=== PATIENT | female | born 1960 | race Caucasian/White ===

== ENCOUNTER → 2023-03-11 | Outpatient (CLI) | payer BC | END | disposition home or self-care (01) | LOC: LABPAT 11:10 | PROVIDERS: ATTEND Orthopaedic Surgery | DX: Z01.812 Encounter for preprocedural laboratory examination (principal); M16.11 Unilateral primary osteoarthritis, right hip ==

== ENCOUNTER 2023-03-18 08:12 | Observation (INO) | payer BC ==
[2023-03-09 08:36] VITALS: BMI 37.9
[2023-03-11 12:34] LABS: Partial Thromboplastin Time 23.7 sec (22.0-30.0); Prothrombin Time 10.1 sec (9.0-12.0)
[2023-03-14 16:24] LABS: Appearance,Urine Turbid (Clear); Bilirubin,Urine Negative (Negative); Blood,Urine Trace (Negative); Color,Urine Dark Yellow (Yellow); Ketones,Urine Negative (Negative); Nitrite,Urine Negative (Negative); Specific Gravity,Urine 1.021 (1.001-1.030); Urobilinogen,Urine 0.2
[2023-03-14 16:25] LABS: ALT 75 U/L (8-44); AST 71 U/L (13-35); Albumin 4.4 d/dL (3.8-4.9); Albumin/Globulin Ratio 1.63 Ratio (1.60-3.17); Alkaline Phosphatase 133 U/L (41-126); BUN/Creat Ratio 13.43 Ratio (12.00-20.00); Bacteria,Urine Trace; Blood Urea Nitrogen 9.4 mg/dL (9.0-27.0); Calcium 9.4 mg/dL (8.7-10.3); Carbon Dioxide 26.4 mmol/L (21.6-31.8); Chloride 104 mmol/L (96-109); Globulin 2.7 d/dL (1.6-3.3); Glucose 111 mg/dL (70-110); HCT 50.4 % (37.2-46.3); HGB 16.4 d/dL (12.0-15.0); MCH 32.2 pg (27.0-32.0); MCHC 32.5 d/dL (32.0-37.0); Mean Platelet Volume 10.7 FL (9.5-12.2); NRBC Per 100 WBC 0 X 10*3/uL (0.00-0.01); Platelet Count 223 X 10*3/uL (140-440); Potassium 4.6 mmol/L (3.5-5.5); RBC 5.09 X 10*6/uL (4.10-5.20); RDW 12.3 % (11.5-14.5); Sodium 142 mmol/L (135-145); Total Bilirubin 0.4 mg/dL (0.3-1.2); Total Protein 7.1 d/dL (6.2-8.2); WBC 4.74 X 10*3/uL (4.50-10.00)
[~2023-03-18 08:12] MED LIST: ACETAMINOPHEN TAB 500 MG TAB PO PRN; DEXAMETHASONE SOD PHOSPHATE 10 MG/ML 1 ML VIAL IV PRN; DOCUSATE 100 MG CAP PO PRN; FAMOTIDINE 20 MG/2 ML VIAL IVP PRN; KETOROLAC 15 MG/ML 1 ML VIAL IVP PRN; ONDANSETRON 4 MG/2 ML VIAL IVP PRN; TRANEXAMIC 1,000 MG/100ML-NACL 1,000 MG in SALINE 1 100ML.BAG IV PRN; TRANEXAMIC 1,000 MG/100ML-NACL 1,000 MG in SALINE 1 100ML.BAG IVPB PRN; oxyCODONE ER 10 MG TAB.ER.12H PO PRN
[2023-03-18] MEDS: LACTATED RINGERS 1,000 ML IV SCH ×2 (09:00→21:57)
[2023-03-18] MEDS ORDERED: DEXAMETHASONE SOD PHOSPHATE 4 MG/ML 1 ML VIAL IVP ONE (09:32)
[2023-03-18] MEDS ORDERED: MIDAZOLAM 2 MG/2 ML VIAL IVP ONE (09:34)
[2023-03-18] MEDS ORDERED: fentaNYL (PF) 50 MCG/ML 2 ML AMP IVP ONE (09:40)
[2023-03-18 09:42] LABS: Glucose,Whole Blood 124 mg/dL (70-110)
[2023-03-18] MEDS ORDERED: NEOSTIGMINE 1 MG/ML 10 ML VIAL ONE (09:53)
[2023-03-18] MEDS ORDERED: SODIUM CHLORIDE 0.9% (PF) 10 ML VIAL ONE (09:53)
[2023-03-18] MEDS ORDERED: ROPIVACAINE 5 MG/ML 30 ML VIAL ONE (09:53)
[2023-03-18] MEDS ORDERED: LIDOCAINE 2% INJ 20 MG/ML (2 ML VIAL) ONE (09:53)
[2023-03-18] MEDS ORDERED: fentaNYL (PF) 50 MCG/ML 2 ML AMP ONE (09:53)
[2023-03-18] MEDS ORDERED: TRANEXAMIC 1,000 MG/100ML-NACL PREMIX BAG ONE (09:53)
[2023-03-18] MEDS ORDERED: GLYCOPYRROLATE 0.2 MG/ML 2 ML VIAL ONE (09:53)
[2023-03-18] MEDS ORDERED: PHENYLEPHRINE-0.9% NACL SYG 1,000 MCG/10 ML SYRINGE ONE (09:53)
[2023-03-18] MEDS ORDERED: MIDAZOLAM 2 MG/2 ML VIAL ONE (09:53)
[2023-03-18] MEDS ORDERED: SUCCINYLCHOLINE CHLORIDE 200 MG/10 ML VIAL IV ONE (09:53)
[2023-03-18] MEDS ORDERED: PROPOFOL 10 MG/ML 20 ML VIAL IV ONE (09:53)
[2023-03-18] MEDS ORDERED: HYDROmorphone (PF) 1 MG/ML ONE (09:53)
[2023-03-18] MEDS ORDERED: ROCURONIUM 10 MG/ML (5 ML VIAL) IV ONE (09:53)
[2023-03-18] MEDS: ROPIVACAINE/EPI/CLONIDINE/KET 50 ML SYRINGE MISCELLANE PRN ×2 (10:47→11:55)
[2023-03-18] MEDS ORDERED: LACTATED RINGERS 1,000 ML IV ONE (11:40)
--- NOTE | 2023-03-18 12:18 | FL ---
EXAMINATION TYPE: FL guidance operating room DATE OF EXAM: 03/18/2023 HISTORY: Fluoroscopy time Total dose area product (DAP) in uGy*m?, mGy*cm? (or similar): 6.1638 IMPRESSION: 1. Fluoroscopy time.
--- NOTE | 2023-03-18 12:20 | XR ---
EXAMINATION TYPE: XR Hip Limited RT DATE OF EXAM: 03/18/2023 COMPARISON: NONE HISTORY: Postop TECHNIQUE: One view submitted. FINDINGS: There is postsurgical change in near anatomic alignment. There is soft tissue edema and emphysema. IMPRESSION: 1. Postoperative change. Appears in near-anatomic alignment.
--- NOTE | 2023-03-18 12:36 | P.ANPRN ---
Procedure Note - Anesthesia - Nerve Block Performed Right Tray Time Out Performed: Yes (:) Date of Procedure: 03/18/23 Procedure Start Time: Procedure Stop Time: : Location of Patient: PreOp Indication: Acute Post-Operative Pain, Requested by Surgeon (Dr Mcgee) Sedation Type: Sedate with meaningful contact maintained Preparation: Sterile Prep Position: Supine Catheter: None Needle Types: Pajunk Needle Gauge: 21 Ultrasound used to visualize needle placement: Yes Ultrasound used to observe medication spread: Yes Injectate: 0.5% Ropivacaine (see comment for volume) (20cc +5cc PF Normal saline) Blood Aspirated: No Pain Paresthesia on Injection Noted: No Resistance on Injection: Normal Image Stored and Saved: Yes Events: Uneventful and Well Tolerated
[2023-03-18] MEDS ORDERED: HYDROmorphone 0.5 MG/0.5 ML SYRINGE IVP PRN ×2 (12:39)
[2023-03-18] MEDS ORDERED: NALOXONE 0.4 MG/ML 1 ML VIAL IV PRN (12:39)
[2023-03-18] MEDS ORDERED: HYDROmorphone 1 MG/ML 1 ML SYRINGE IVP PRN (12:39)
[2023-03-18] MEDS ORDERED: hydrOXYzine pamoate 25 MG CAP PO PRN (12:39)
--- NOTE | 2023-03-18 12:40 | P.OP ---
Date of Procedure: 03/18/23 Preoperative Diagnosis: 1. Right hip osteoarthritis 2. BMI 37.7 3. Chronic narcotic pain medication use, [place] 7.5/325 Postoperative Diagnosis: Same Procedure(s) Performed: Right direct anterior total hip arthroplasty Implants: 1. Hendley Trident II Acetabular Cup, Size #48 2. Lupe Insignia Size #4 Femoral Stem, Standard Offset 3. Dual Mobility OD 38 mm, ID 22.2 mm, +3 mm neck (Dual mobility was used to the patient's prior lumbar spine fusion and concern for abnormal spino-pelvic motion) Anesthesia: HARSHIL, regional Surgeon: Joseph Mcgee Linen Attendant #1: Sukhwinder Drew Estimated Blood Loss (ml): 200 IV fluids (ml): 1,000 Pathology: none sent Condition: stable Disposition: PACU Indications for Procedure: I met the patient in the office to discuss chronic right hip pain that had fail ed a long course of nonsurgical treatment and presented to discuss an elective hip replacement.. The patient had severe arthritis on her x-rays and had an exam that was consistent with symptomatically Arthritis that she had limited hip motion and severe pain with any passive range of motion. The patient also has a history of lumbar spine fusion and chronically takes narcotic pain medications. She understands the possibility of referred pain from her back. She also understands increased risks due to her weight and narcotic use. I had a long discussion with the patient in the office on the potential risks and complications of an elective total hip replacement through a direct anterior approach. Risks discussed include, but are certainly not limited to, risks from anesthesia, superficial infection requiring local wound care or antibiotics, deep josephine-prosthetic joint infection and the treatment required to eradicate infection, intraoperative fracture, postoperative periprosthetic fracture, damage to local blood vessels or nerves particularly the lateral femoral cutaneous nerve, delayed wound healing requiring local wound care or possibly surgical debridement, hip dislocation, leg length discrepancy, soft tissue irritation around the total hip implant such as iliopsoas tendinitis or trochanteric bursitis, wear and osteolysis from the implants, squeaking or audible noises, groin pain, thigh pain, heterotopic ossification, stiffness, aseptic loosening of the implants, dissatisfaction with surgical outcome, need for revision surgery, DVT, PE, swelling of the operative extremity, acute coronary event, stroke, failure to thrive, and possibly loss of life or limb. The patient understands that while these are the most common complications after an elective hip replacement there are certainly other less common complications possible. They were given ample time to ask questions regarding the potential complications of a hip replacement. Following our discussion the patient provided their verbal and written consent to go forward with an elective total hip replacement. Operative Findings: Severe full-thickness cartilage loss of the femoral head and acetabulum. Description of Procedure: The patient was identified in the preoperative holding area and the correct hip was marked with my initials. I reviewed the procedure and consent with the patient. All of their questions were answered. The patient was then brought back into the operating room by anesthesia. While on the [facility] anesthesia was administered by the anesthesia team. Preoperative antibiotics and tranexamic acid were also given. After the patient was under anesthesia I examined their ankles to determine their preoperative leg length discrepancy. The skin over the anterior aspect of the hip was shaved to remove hair over the site of planned incision. Both feet and ankles were padded with webril and boots for the [place] were applied. The patient was then carefully transferred onto the [place] table. A perineal post was immediately placed. The arms were placed on arm holders and were well-padded. Both boots were secured to the spars on the [place] table. The patient was positioned so that the pelvis was centered over the post. Nonsterile drapes were applied. A timeout was performed identifying the correct patient, operative extremity, and procedure. At this point fluoroscopy was brought in to take preoperative images of the pelvis and operative hip. Using the standing AP pelvis from the office as a template, a comparable image was obtained with fluoroscopy. A metallic bar was used to create a bi-ischial line for use as a reference to leg length adjustments during the procedure. Global offset was also measured on both the operative and nonoperative leg. Fluoroscopy was then brought out and a pre-scrub using a chlorhexidine scrub brush was performed. The operative limb was then prepped and draped in the standard sterile fashion. An anterior longitudinal incision was made lateral and distal to the ASIS. The skin and subcutaneous tissues were incised sharply. The underlying tensor fascia was identified and incised in its midportion. The fascia was dissected free from the underlying muscle and the muscle belly was retracted. A blunt tipped cobra retractor was placed over the superior neck under the muscle fibers of the gluteus minimus. The deep enveloping fascia of the tensor was incised. The anterior leash of vessels were then identified and cauterized. The fascia between the rectus and the capsule was then incised and the pre-capsular fat was excised. A second Cobra was placed inferior to the neck. The interval between the rectus and iliocapsularis and the hip capsule was developed and a retractor was placed carefully over the anterior rim of the acetabulum. A T-shaped anterior capsulotomy was performed. The superior capsular leaflet was left in place in the inferior capsular flap was excised. The Cobra retractors were placed intracapsularly. We then made a femoral neck osteotomy according to preoperative and intraoperative templating and confirmed the level of the osteotomy using fluoroscopic imaging. The femoral head was removed, passed off to the back table, and sized. The superior capsular flap was excised. Retractors were placed circumferentially exposing the acetabulum. We then circumferentially debrided the acetabulum free of labrum and osteophytes. The pulvinar was removed to fully visualize the cotyloid fossa. We then sequentially reamed to achieve peripheral fit and excellent bleeding subchondral bone. The socket was thoroughly irrigated. The acetabular component was impacted into the appropriate position using fluoroscopy to guide version, inclination, and depth of insertion taking care to have a comparable image of the AP pelvis to the standing image taken in the office. An excellent press-fit was achieved and final position was confirmed using fluoroscopy. The press fit was augmented with bony cancellus dome screws. The liner was then impacted into the socket. Attention was then turned to the femur. The remnant dorsal lateral capsule was excised. The short external rotators were visible and protected. A bone hook was used to confirm appropriate translation of the trochanter away from the acetabulum. The leg was then extended and adducted and the bone hook was used to elevate the femur for broaching. A box osteotome and blunt tipped canal sound was then utilized to gain access to the femoral canal. We then sequentially broached the femur in appropriate anteversion until excellent torsional stability was achieved. The neck cut was brought flush to the trial broach with a calcar planar. A trial neck and head were then placed onto the broach and the hip was atraumatically reduced under direct visualization. External rotation to 90 was performed to assess stability. Fluoroscopy was brought in. An AP and lateral fluoroscopic image of the proximal femur was obtained to assess position and fill of the trial broach. An AP of the pelvis was then obtained and matched to the preoperative image taken. A bi-ischial bar was then placed and measurements were taken to assess changes in length and offset. The hip was then carefully dislocated, the proximal femur was exposed, and the trial implants were removed. The wound and proximal femur was thoroughly irrigated using sterile saline and pulsatile lavage. The final femoral implant was dispensed and gently tapped into place generating an excellent press-fit. The trunnion was cleansed and the final head was tapped into place to engage the Khoury taper. The acetabulum was irrigated and visualized to be free of debris. The hip was carefully reduced. Stability was checked clinically with external rotation to 90 and there was no evidence of instability. Final fluoroscopic images were taken. The wound was then thoroughly irrigated and soaked with a dilute Betadine rinse for 3 minutes. 3 L of sterile saline was irrigated through the wound using pulsatile lavage. Local anesthetic cocktail was injected into the soft tissues around the surgical field. A deep drain was placed. The wound was then closed in layers. A sterile dressing was placed over the surgical incision and drain site. The drapes were taken down and the patient was carefully transferred off of the [place] table. Following removal of the boots the leg lengths felt acceptable. The patient was then taken to recovery room having tolerated the procedure well. Sukhwinder Drew PA-C was required as a skilled prosthetic assistant for patient positioning, surgical exposure, retraction, placement of implants, and closure of the surgical wound. PLAN: The patient can weight-bear as tolerated on the operative extremity. 2 doses of postoperative antibiotics. DVT prophylaxis with aspirin 81 mg twice a day based on preoperative risk stratification. Physical therapy for gait training. Discontinue drain postoperative day #1 if output is less than 100 mL per shift.
[2023-03-18] MEDS ORDERED: HYDROmorphone 0.5 MG/0.5 ML SYRINGE IVP ONE (12:48)
[2023-03-18 18:18] LABS: Glucose,Whole Blood 172 mg/dL (70-110)
--- NOTE | 2023-03-18 19:32 | XR ---
EXAMINATION TYPE: XR ankle limited RT DATE OF EXAM: 03/18/2023 7:10 PM INDICATION: Patient age:Female; 62 years old; Reason for study: fall; COMPARISON: None TECHNIQUE: The right ankle is imaged in frontal, lateral and oblique projections. FINDINGS: There is no evidence of acute osseous pathology. The joint spaces are well-preserved without evidenc e of subluxation or dislocation. Kager's fat pad is intact. Soft tissues are within normal limits. No radiopaque foreign bodies are identified. IMPRESSION: 1. No evidence of acute fracture.
--- NOTE | 2023-03-18 19:33 | XR ---
EXAMINATION TYPE: XR Hip Limited RT DATE OF EXAM: 03/18/2023 7:10 PM INDICATION: Patient age:Female; 62 years old; Reason for study: fall, post R FREDA; COMPARISON: None. TECHNIQUE: The right hip was examined in the frontal projections FINDINGS: Post arthroplasty changes, hardware is intact, alignment is appropriate. No evidence of fra cture. Postoperative changes of the soft tissues with subcutaneous gas. No evidence of any acute osse ous pathology or joint dislocation. IMPRESSION: Hip arthroplasty with hardware intact and in appropriate alignment. No acute fracture.
[2023-03-18] MEDS: ASPIRIN 81 MG PO SCH (20:13)
[2023-03-18] MEDS: SENNOSIDES-DOCUSATE SODIUM 1 EACH TAB PO SCH (20:14)
[2023-03-18] MEDS: HYDROcodone/APAP 10-325MG 1 EACH TAB PO PRN (21:56)
[2023-03-19] MEDS ORDERED: ALBUTEROL NEBULIZED 2.5 MG/3 ML INHALATION PRN (02:36)
--- NOTE | 2023-03-19 04:01 | P.CONS ---
History of Present Illness - Reason for Consult Consult date: 03/18/23 post op medical management - Chief Complaint scheduled right hip replacement - History of Present Illness 62 year old female with hypothyroid , hypertension , GERD she is here for planned right total hip arthroplasty due to severe OA. patient tolerated procedure well, no observed immediate post op complications , denies any chest pain , trouble breathing , fever, chills. patient reports falling post operatively , but then she was evaluated by her surgeon and deemed to be stable , with intact surgical site. denies smoking , illicit drugs or alcohol Review of Systems Pertinent positives as noted in HPI. All other systems were reviewed and are negative Past Medical History Past Medical History: Asthma, GERD/Reflux, Hyperlipidemia, Hypertension, Osteoarthritis (OA), Thyroid Disorder Additional Past Medical History / Comment(s): "little leaky heart valve",hypoglycemic History of Any Multi-Drug Resistant Organisms: None Reported Past Surgical History: Adenoidectomy, Cholecystectomy, Orthopedic Surgery, Tonsillectomy Additional Past Surgical History / Comment(s): ORIF left ankle,exploratory lap and bowel was nicked causing an open laparotomy to repair. anterior TRH. Past Anesthesia/Blood Transfusion Reactions: Postoperative Nausea & Vomiting (PONV) Additional Past Anesthesia/Blood Transfusion Reaction / Comm: blood transfusion post tonsillectomy as a child-no reactions. "I get antsy with anesthesia and confused OT after anesthesia" Past Psychological History: Anxiety, Depression Additional Psychological History / Comment(s): had son pass away at age 4 months. Smoking Status: Former smoker Past Alcohol Use History: Occasional Additional Past Alcohol Use History / Comment(s): quit smoking approx 10 yrs ago, started smoking at age 15 Past Drug Use History: None Reported - Past Family History Mother Family Medical History: Cancer Additional Family Medical History / Comment(s): skin Brother(s) Family Medical History: Diabetes Mellitus Sister(s) Family Medical History: Diabetes Mellitus Father Family Medical History: Coronary Artery Disease (CAD), Diabetes Mellitus Medications and Allergies Home Medications Medication Instructions Recorded Confirmed Type Albuterol Inhaler [Ventolin Hfa 1 - 2 puff INHALATION Q6H PRN 03/09/23 03/18/23 History Inhaler] Aspirin 81 mg PO DAILY 03/09/23 03/18/23 History Cholecalciferol (Vitamin D3) 1,250 mcg PO 1800 03/09/23 03/18/23 History [Vitamin D3] Famotidine [Pepcid] 40 mg PO TID PRN 03/09/23 03/18/23 History HYDROcodone/APAP 7.5-325MG [[place] 1 tab PO TID PRN 03/09/23 03/18/23 History 7.5-325] Ibuprofen [Motrin] 600 mg PO Q8HR PRN 03/09/23 03/18/23 History Levothyroxine Sodium [Synthroid] 25 mcg PO DAILY 03/09/23 03/18/23 History Loperamide [Imodium] 2 mg PO QID PRN 03/09/23 03/18/23 History Losartan [Cozaar] 50 mg PO DAILY 03/09/23 03/18/23 History Magnesium Oxide [Magnesium] 500 mg PO 1800 03/09/23 03/18/23 History Mupirocin [Bactroban Nasal 1 applic TOPICAL TID 03/09/23 03/18/23 History Ointment 2% (with applicator)] clonazePAM [KlonoPIN] 0.5 - 1 mg PO TID PRN 03/09/23 03/18/23 History Allergies Allergy/AdvReac Type Severity Reaction Status Date / Time ampicillin Allergy Unknown Verified 03/09/23 08:08 Childhood cephalexin [From Keflex] Allergy Dyspnea Verified 03/09/23 08:08 erythromycin base Allergy Dyspnea Verified 03/09/23 08:08 moxifloxacin [From Avelox] Allergy Dyspnea Verified 03/09/23 08:08 Sulfa (Sulfonamide Allergy Dyspnea Verified 03/09/23 08:08 Antibiotics) tetracycline Allergy Dyspnea Verified 03/09/23 08:08 clindamycin AdvReac bowel Verified 03/09/23 08:30 problems DIAL SOAP AdvReac Rash/Hives Uncoded 03/18/23 08:56 Physical Exam Vitals: Vital Signs Temp Pulse Resp BP Pulse Ox 03/18/23 18:46 98.7 F 90 139/87 94 L 03/18/23 15:53 63 119/76 92 L 03/18/23 15:38 70 110/69 87 L 03/18/23 15:23 72 133/80 86 L 03/18/23 15:08 92 137/87 92 L 03/18/23 14:53 75 133/83 94 L 03/18/23 14:38 70 130/81 93 L 03/18/23 14:23 64 116/73 91 L 03/18/23 14:08 65 113/76 95 03/18/23 13:53 97.9 F 57 L 121/75 88 L 03/18/23 13:30 77 16 119/63 98 03/18/23 13:15 80 16 118/56 98 03/18/23 13:00 63 20 129/64 98 03/18/23 12:45 59 L 20 135/60 98 03/18/23 12:37 82 20 137/80 97 03/18/23 09:49 78 20 111/61 96 03/18/23 08:53 97.8 F 77 20 158/86 94 L Intake and Output 03/18/23 03/18/23 03/18/23 06:59 14:59 22:59 Intake Total 1550 Output Total 200 800 Balance 1350 -800 Intake: IV 1550 Output: Urine 800 Estimated Blood Loss 200 Other: # Voids 1 Weight 106 kg Constitutional: No acute distress, conversant, pleasant Eyes: Anicteric sclerae, moist conjunctiva, Pupils equal round reactive to light ENMT: NC/AT Oropharynx clear, no erythema, or exudates Neck: Supple, no masses, or JVD No carotid bruits No thyromegaly Lungs: Clear to auscultation Clear to percussion Normal respiratory effort, no accessory muscle use Cardiovascular: Heart regular in rate and rhythm, No murmurs, gallops, or rubs No peripheral edema Abdominal: Soft Nontender, no guarding, rebound or rigidity Abdomen moving with respiration Normoactive bowel sounds No hepatomegaly, No splenomegaly No palpable mass No abdominal wall hernia noted Skin: Normal temperature, tone, texture, turgor Extremities: drain in right hip post op. No digital cyanosis No clubbing Pedal pulses intact and symmetrical Radial pulses intact and symmetrical No calf tenderness Psychiatric: Alert and oriented to person, place and time Appropriate affect Neuro Muscles Strength 5/5 in all 4 extremities , limited exam over right lower extremity due to post op pain Sensation to light touch grossly present throughout Cranial nerves II-XII grossly intact Lymphatics: no palpable cervical or supraclavicular lymph nodes Results CBC & Chem 7: 03/11/23 11:58 03/11/23 11:58 Labs: Abnormal Lab Results - Last 24 Hours (Table) 03/18/23 03/18/23 Range/Units 09:25 18:17 POC Glucose (mg/dL) 124 H 172 H (70-110) mg/dL Assessment and Plan Assessment: hypertension resume losartan 50 mg po daily blood pressure controlled hypothyroid resume levothyroxine 25 mcg daily GERD pepcid daily anxiety resume home klonipin stable from medical stand point post right hip arthroplasty , POD #zero fall post op , was evaluated by orthopedics pain control and DVT PPX per orthopedic team stable from medical stand point follow up CBC and CMP thank you for this consultation
[2023-03-19] MEDS: LEVOTHYROXINE 25 MCG TAB PO SCH (05:54)
[2023-03-19] MEDS: LOSARTAN 50 MG TAB PO SCH (08:33)
[2023-03-19] MEDS: ASPIRIN 81 MG PO SCH ×2 (08:33→22:21)
[2023-03-19] MEDS: ARTIFICIAL TEARS-HYPROMELLOSE DROPS 15 ML BTL RIGHT EYE PRN (08:33)
[2023-03-19] MEDS: HYDROcodone/APAP 10-325MG 1 EACH TAB PO PRN ×2 (08:38→22:21)
[2023-03-19 09:03] LABS: HCT 43.3 % (34.0-46.0); HGB 14.1 gm/dL (11.4-16.0); MCH 33.1 pg (25.0-35.0); MCHC 32.6 g/dL (31.0-37.0); MCV 101.6 fL (80.0-100.0); Macrocytosis Slight; Mean Platelet Volume 8.6; Platelet Count 150 k/uL (150-450); RBC 4.26 m/uL (3.80-5.40); RDW 12.5 % (11.5-15.5); WBC 10.5 k/uL (3.8-10.6)
[2023-03-19 09:18] LABS: African American GFR (CKD) >90 (>60 ml/min/1.73 sqM); Anion Gap 7 mmol/L; Blood Urea Nitrogen 9 mg/dL (7-17); Calcium 8.6 mg/dL (8.4-10.2); Carbon Dioxide 23 mmol/L (22-30); Chloride 105 mmol/L (98-107); Glucose 131 mg/dL (74-99); Non-African American GFR(CKD) >90 (>60 ml/min/1.73 sqM); Sodium 135 mmol/L (137-145)
--- NOTE | 2023-03-19 10:37 | P.PN ---
Subjective Progress Note Date: 03/19/23 The patient reports that she sustained a ground-level fall yesterday while coming back from the bathroom. She was seen and evaluated and had x-rays, but continues to have some discomfort throughout her leg. She denies hitting her head or losing consciousness. She has no other complaints this morning. Objective - Vital Signs Vital signs: Vital Signs Temp 98.2 F 03/19/23 07:57 Pulse 99 03/19/23 07:57 Resp 18 03/19/23 07:57 BP 112/73 03/19/23 07:57 Pulse Ox 95 03/19/23 07:57 FiO2 Intake & Output 03/18/23 03/19/23 03/19/23 18:59 06:59 18:59 Intake Total 1550 Output Total 1000 200 Balance 550 -200 Weight 106 kg Intake: IV 1550 Output: Drainage 200 Right Hip 200 Urine 800 Estimated Blood Loss 200 Other: # Voids 1 3 - Exam The patient is resting comfortably in her bed. Her incisional wound VAC is in place with a good seal. Her Hemovac drain was removed. Her thigh is soft. She has some discomfort with passive range of motion but it is as expected following hip replacement. Femoral nerve function is intact. Distally she has minimal swelling over the ankle. She has mild tenderness over both the medial lateral malleolus. She has motor and sensory function intact throughout the right foot - Labs CBC & Chem 7: 03/19/23 08:47 03/19/23 08:47 Labs: Abnormal Lab Results - Last 24 Hours (Table) 03/18/23 03/19/23 03/19/23 Range/Units 18:17 08:47 08:47 MCV 101.6 H (80.0-100.0) fL Sodium 135 L (137-145) mmol/L Glucose 131 H (74-99) mg/dL POC Glucose (mg/dL) 172 H (70-110) mg/dL Assessment and Plan Assessment: Postoperative day #1 status post right direct anterior total hip arthroplasty an incisional wound VAC placement Plan: 1. Weight-bear as tolerated right lower extremity, up with assistance and a walker 2. 2 doses postoperative antibiotics 3. DVT prophylaxis with aspirin 81 mg twice a day 4. Appreciate internal medicine perioperative medical management 5. Physical therapy for gait training 6. Dispo: I would like to keep the patient another night due to her fall yesterday. We briefly discussed the possibility of needing rehab or short-term nursing facility and the patient seems agreeable to this if needed. We'll see how she does with physical therapy today and reevaluate tomorrow.
[2023-03-19] MEDS ORDERED: diazePAM 2 MG TAB PO STA (11:01)
--- NOTE | 2023-03-19 15:38 | P.PN ---
Subjective Progress Note Date: 03/19/23 (delayed hcarting seen at 1045) Patient is a 62-year-old female with hypothyroidism, hypertension, and GERD who presented to the hospital for elective right total hip arthroplasty due to s evere osteoarthritis. She tolerated the procedure well. She did have a fall after the OR. X-ray evaluation was negative. She did work with physical and occupational therapy which were worried about her pain and weakness causing imbalance and recommended possible rehab if this does not improve. Patient seen and examined at bedside. Currently states that if she moves her leg to the left or to the right she feels as if she has felt a little tiny needles going into her hip joint. She believes it is due to the self-contained wound VAC. I did discuss with her that this is highly unlikely it is more likely due to surgery. She believes that is the source of her pain which is calling is in her to be weak ans physical therapy to recommend rehab which is distressing to her. Vital signs reviewed General: [nontoxic], [no distress], [appears at stated age] Cardiovascular: [S1S2 reg], [no murmur], [positive posterior tibial pulse bilateral], Lungs: [CTA bilateral], [no rhonchi, no rales] , [no accessory muscle use] Abdominal: [soft], [ nontender to palpation], [no guarding], [no appreciable organomegaly] Ext: [no gross muscle atrophy], [trace edema b/l lower extremities], [no contractures] Neuro: [ CN II-XI grossly intact], [no focal neuro deficits] Psych: [Alert], [oriented], [appropriate affect] Assessment/plan: Patient is a 62-year-old female status post right total hip arthroplasty Post-operative pain -Patient believes that her pain is coming from her Prevana vac currently. Discussed with Dr. Mcgee, and we both feel this is unlikely - will try valium X 1 now and if that is ineffective than he will trouble shoot in the morning. Hypertension -Follow blood pressures -Continue with Cozaar 50 mg daily Hypothyroidism -Continue Synthroid Tonic: GERD Asthma Dyslipidemia Imaging: right hip and ankle x-ray reports reviewed no acute fracture Data Review: Vital signs reviewed blood pressure well controlled at 112/73 Laboratory analysis remarkable for glucose 131, sodium 135 Thank you for allowing us to participate in the care of this pleasant patient. Do not hesitate to contact us with questions. Someone can be reached from the [facility] hospitalist group all hours of the day at [phone] or via perfect serve. This dictation was prepared using [employer] voice recognition software. Though every attempt is made to correct errors during dictation some may still exist. Objective - Vital Signs Vital signs: Vital Signs Temp 98.2 F 03/19/23 14:18 Pulse 99 03/19/23 14:18 Resp 18 03/19/23 14:18 BP 128/77 03/19/23 14:18 Pulse Ox 98 03/19/23 14:18 FiO2 Intake & Output 03/18/23 03/19/23 03/19/23 18:59 06:59 18:59 Intake Total 1550 Output Total 1000 200 Balance 550 -200 Weight 106 kg Intake: IV 1550 Output: Drainage 200 Right Hip 200 Urine 800 Estimated Blood Loss 200 Other: # Voids 1 3 2 - Labs CBC & Chem 7: 03/19/23 08:47 03/19/23 08:47 Labs: Abnormal Lab Results - Last 24 Hours (Table) 03/18/23 03/19/23 03/19/23 Range/Units 18:17 08:47 08:47 MCV 101.6 H (80.0-100.0) fL Sodium 135 L (137-145) mmol/L Glucose 131 H (74-99) mg/dL POC Glucose (mg/dL) 172 H (70-110) mg/dL
[2023-03-19 16:54] LABS: Glucose,Whole Blood 144 mg/dL (70-110)
[2023-03-19] MEDS: clonazePAM 1 MG TAB PO PRN (22:21)
[2023-03-19] MEDS: SENNOSIDES-DOCUSATE SODIUM 1 EACH TAB PO SCH (22:21)
[2023-03-20 01:06] LABS: Glucose,Whole Blood 118 mg/dL (70-110)
[2023-03-20] MEDS: LEVOTHYROXINE 25 MCG TAB PO SCH (05:56)
[2023-03-20] MEDS: HYDROcodone/APAP 10-325MG 1 EACH TAB PO PRN ×3 (05:56→22:48)
[2023-03-20] MEDS: FAMOTIDINE 20 MG TAB PO PRN (05:56)
[2023-03-20] MEDS: LACTATED RINGERS 1,000 ML IV SCH (07:21)
[2023-03-20] MEDS: ASPIRIN 81 MG PO SCH ×2 (08:33→21:09)
[2023-03-20] MEDS: LOSARTAN 50 MG TAB PO SCH (08:34)
[2023-03-20] MEDS: ARTIFICIAL TEARS-HYPROMELLOSE DROPS 15 ML BTL RIGHT EYE PRN (08:36)
--- NOTE | 2023-03-20 08:55 | P.PN ---
Subjective Progress Note Date: 03/20/23 Today is postoperative day #2. Patient is status post right total hip arthroplasty on 03/18/23. Patient is examined bedside this morning with Dr. Mcgee. She states the pain is well-controlled at this time. Although she is experiencing shooting pains in the thigh that she is attributing to the wound vac. Per physical therapy, rehab may be recommended at discharge. Objective - Vital Signs Vital signs: Vital Signs Temp 98.9 F 03/20/23 07:50 Pulse 100 03/20/23 07:50 Resp 18 03/20/23 07:50 BP 120/76 03/20/23 07:50 Pulse Ox 95 03/20/23 07:50 FiO2 Intake & Output 03/19/23 03/20/23 03/20/23 18:59 06:59 18:59 Other: # Voids 1 3 - Exam On examination, the patient is sitting up in bed in no apparent distress. She is alert and oriented 3. On inspection of her right hip, there is a clean, dry, intact surgical dressing in place. No bleeding or drainage to the dressing. Motor and sensory function intact RLE. Femoral nerve function intact. RLE warm and well perfused. Calf nontender. - Labs CBC & Chem 7: 03/19/23 08:47 03/19/23 08:47 Labs: Abnormal Lab Results - Last 24 Hours (Table) 03/19/23 03/19/23 03/19/23 Range/Units 08:47 08:47 16:53 MCV 101.6 H (80.0-100.0) fL Sodium 135 L (137-145) mmol/L Glucose 131 H (74-99) mg/dL POC Glucose (mg/dL) 144 H (70-110) mg/dL 03/20/23 Range/Units 01:05 MCV (80.0-100.0) fL Sodium (137-145) mmol/L Glucose (74-99) mg/dL POC Glucose (mg/dL) 118 H (70-110) mg/dL Assessment and Plan Assessment: Status-post direct anterior right total hip arthroplasty 03/18/23. Post-op day #2. Plan: - Weight-bearing to tolerance on operative extremity with a walker. - Physical therapy for gait and balance training. - Keep Prevena wound vac in place. - Take pain medications as prescribed. Aspirin 81mg BID for DVT prophylaxis. - Internal medicine for josephine-op medical management. - Case management consulted for discharge planning. Will re-assess with PT tomorrow if rehab is still recommended.
--- NOTE | 2023-03-20 11:04 | P.PN ---
Subjective Progress Note Date: 03/20/23 Patient is a 62-year-old female with hypothyroidism, hypertension, and GERD who presented to the hospital for elective right total hip arthroplasty due to severe osteoarthritis. She tolerated the procedure well. She did have a fall after the OR. X-ray evaluation was negative. She did work with physical and occupational therapy which were worried about her pain and weakness causing imbalance and recommended possible rehab if this does not improve. Patient seen and examined at bedside. She continues to complain of pain and weakness and just wants to stay at the hospital for a few days to get stronger and not go to the hospital. Vital signs reviewed General: nontoxic, no distress, appears at stated age Cardiovascular: S1S2 reg, no murmur, positive posterior tibial pulse bilateral, Lungs: CTA bilateral, no rhonchi, no rales , no accessory muscle use Abdominal: soft, nontender to palpation, no guarding, no appreciable organomegaly Ext: no gross muscle atrophy, trace edema b/l lower extremities, no contractures Neuro: CN II-XI grossly intact, no focal neuro deficits Psych: Alert, oriented, appropriate affect Assessment/plan: Patient is a 62-year-old female status post right total hip arthroplasty Hypertension -Follow blood pressures -Continue with Cozaar 50 mg daily Hypothyroidism -Continue Synthroid Tonic: GERD Asthma Dyslipidemia Imaging: none Data Review: T-max last 24 hours 99.7. Remainder of vitals pulse 112, respirations 18, blood pressure 120/76, O2 sat 96% on room air Thank you for allowing us to participate in the care of this pleasant patient. Do not hesitate to contact us with questions. Someone can be reached from the [facility] hospitalist group all hours of the day at [phone] or via [employer] This dictation was prepared using [employer] voice recognition software. Though every attempt is made to correct errors during dictation some may still exist. Objective - Vital Signs Vital signs: Vital Signs Temp 98.9 F 03/20/23 07:50 Pulse 100 03/20/23 07:50 Resp 18 03/20/23 07:50 BP 120/76 03/20/23 07:50 Pulse Ox 95 03/20/23 07:50 FiO2 Intake & Output 03/19/23 03/20/23 03/20/23 18:59 06:59 18:59 Other: # Voids 1 3 - Labs CBC & Chem 7: 03/19/23 08:47 03/19/23 08:47 Labs: Abnormal Lab Results - Last 24 Hours (Table) 03/19/23 03/20/23 Range/Units 16:53 01:05 POC Glucose (mg/dL) 144 H 118 H (70-110) mg/dL
[2023-03-20 11:48] LABS: Glucose,Whole Blood 120 mg/dL (70-110)
[2023-03-20 19:58] LABS: Glucose,Whole Blood 111 mg/dL (70-110)
[2023-03-20] MEDS: SENNOSIDES-DOCUSATE SODIUM 1 EACH TAB PO SCH (21:08)
[2023-03-20] MEDS: clonazePAM 1 MG TAB PO PRN (22:49)
[2023-03-21] MEDS: FAMOTIDINE 20 MG TAB PO PRN (05:03)
[2023-03-21] MEDS: HYDROcodone/APAP 10-325MG 1 EACH TAB PO PRN ×3 (05:03→22:47)
[2023-03-21] MEDS: LEVOTHYROXINE 25 MCG TAB PO SCH (05:05)
[2023-03-21] MEDS: LACTATED RINGERS 1,000 ML IV SCH (05:36)
[2023-03-21 05:38] LABS: Glucose,Whole Blood 104 mg/dL (70-110)
[2023-03-21 07:36] LABS: Basophils % (A) 0 %; Eosinophils # (A) 0.2 k/uL (0-0.7); Eosinophils % (A) 2 %; Lymphocytes # (A) 1.9 k/uL (1.0-4.8); Lymphocytes % (A) 24 %; MCHC 32.4 g/dL (31.0-37.0); MCV 98.8 fL (80.0-100.0); Mean Platelet Volume 9.4; Monocytes # (A) 0.7 k/uL (0-1.0); Monocytes % (A) 8 %; Neutrophils # (A) 5.3 k/uL (1.3-7.7); Neutrophils % (A) 64 %; Platelet Count 140 k/uL (150-450); RBC 4.05 m/uL (3.80-5.40); RDW 12.8 % (11.5-15.5); WBC 8.2 k/uL (3.8-10.6)
[2023-03-21] MEDS: ASPIRIN 81 MG PO SCH ×2 (07:57→20:57)
[2023-03-21] MEDS: LOSARTAN 50 MG TAB PO SCH (07:57)
--- NOTE | 2023-03-21 08:34 | P.DS ---
Providers Expected date of discharge: 03/21/23 Attending physician: Joseph Mcgee Consults: 03/18/23 12:39 Consult Physician Routine Consulting Provider: Kelsie Virk Consult Reason/Comments: medical management Do you want consulting provider notified?: Yes Primary care physician: Yasmany Mann [facility] Course: This is a 62-year-old female who has been followed in our office by Dr. Mcgee for continued complaints of right hip pain due to right hip osteoarthritis. Treatment options were discussed, and patient elected to undergo a right direct anterior total hip arthroplasty. Patient was seen pre-operatively by Dr. Mann and cleared for surgery. Patient underwent a right direct anterior total hip arthroplasty on 03/18/[address] Mcgee. The procedure was performed without complication or sequelae. The patient is doing fairly well postoperatively. Vital signs and labs are stable on postoperative day #3. Patient was examined bedside this morning with Dr. Mcgee. Patient states she is overall doing well and the pain in her right hip is well-controlled. Patient is comfortable being discharged today. Patient has no new complaints this morning. On examination, the patient is sitting up in bed in no apparent distress. She is alert and orientated 3. On inspection of the right hip, there is a clean, dry, intact Prevena wound vac in place. Prevena wound vac has a good seal at this time. Motor and sensory function is intact of the right lower extremity. Femoral nerve function intact. The dorsalis pedis pulse is easily palpable, the right lower extremity is warm and well perfused with brisk capillary refill. Calf is soft and non-tender to palpation. Patient is discharged to subacute rehab today in good condition, pending medical clearance. Patient will follow-up with Dr. Mcgee in the office at [facility] on 03/24/23 for wound vac removal. Please see med rec for accurate list of discharge medication. Plan - Discharge Summary Discharge Rx Participant: Yes New Discharge Prescriptions: New Aspirin 81 mg PO BID 30 Days #60 tab Docusate [Colace] 100 mg PO BID #60 capsule HYDROcodone/APAP 10-325MG [Chandler 10-325] 1 tab PO Q6HR PRN 7 Days #28 tab PRN Reason: Pain Diclofenac Sodium [Voltaren] 75 mg PO BID 30 Days #60 tab Omeprazole 40 mg PO DAILY 30 Days #30 cap No Action Magnesium Oxide [Magnesium] 500 mg PO 1800 Ibuprofen [Motrin] 600 mg PO Q8HR PRN PRN Reason: Pain Cholecalciferol (Vitamin D3) [Vitamin D3] 1,250 mcg PO 1800 Albuterol Inhaler [Ventolin Hfa Inhaler] 1 - 2 puff INHALATION Q6H PRN PRN Reason: sob Famotidine [Pepcid] 40 mg PO TID PRN PRN Reason: reflux Losartan [Cozaar] 50 mg PO DAILY Levothyroxine Sodium [Synthroid] 25 mcg PO DAILY Loperamide [Imodium] 2 mg PO QID PRN PRN Reason: loose stools Mupirocin [Bactroban Nasal Ointment 2% (with applicator)] 1 applic TOPICAL TID HYDROcodone/APAP 7.5-325MG [Chandler 7.5-325] 1 tab PO TID PRN PRN Reason: Pain Aspirin 81 mg PO DAILY clonazePAM [KlonoPIN] 0.5 - 1 mg PO TID PRN PRN Reason: Anxiety Discharge Medication List Albuterol Inhaler [Ventolin Hfa Inhaler] 1 - 2 puff INHALATION Q6H PRN 03/09/23 [History] Aspirin 81 mg PO DAILY 03/09/23 [History] Cholecalciferol (Vitamin D3) [Vitamin D3] 1,250 mcg PO 1800 03/09/23 [History] Famotidine [Pepcid] 40 mg PO TID PRN 03/09/23 [History] HYDROcodone/APAP 7.5-325MG [Chandler 7.5-325] 1 tab PO TID PRN 03/09/23 [History] Ibuprofen [Motrin] 600 mg PO Q8HR PRN 03/09/23 [History] Levothyroxine Sodium [Synthroid] 25 mcg PO DAILY 03/09/23 [History] Loperamide [Imodium] 2 mg PO QID PRN 03/09/23 [History] Losartan [Cozaar] 50 mg PO DAILY 03/09/23 [History] Magnesium Oxide [Magnesium] 500 mg PO 1800 03/09/23 [History] Mupirocin [Bactroban Nasal Ointment 2% (with applicator)] 1 applic TOPICAL TID 03/09/23 [History] clonazePAM [KlonoPIN] 0.5 - 1 mg PO TID PRN 03/09/23 [History] Aspirin 81 mg PO BID 30 Days #60 tab 03/21/23 [Rx] Diclofenac Sodium [Voltaren] 75 mg PO BID 30 Days #60 tab 03/21/23 [Rx] Docusate [Colace] 100 mg PO BID #60 capsule 03/21/23 [Rx] HYDROcodone/APAP 10-325MG [Chandler 10-325] 1 tab PO Q6HR PRN 7 Days #28 tab 03/21/23 [Rx] Omeprazole 40 mg PO DAILY 30 Days #30 cap 03/21/23 [Rx] Follow up Appointment(s)/Referral(s): Joseph Mcgee MD [Medical Doctor] - 03/24/23 Activity/Diet/Wound Care/Special Instructions: Weight bear to tolerance on operative extremity with a walker. Keep Prevena wound vac in place until follow-up in the office. Call the office with any questions or concerns regarding the wound vac. Take pain medications as needed. Take aspirin 81mg twice a day x 4 weeks for blood clot prevention. Follow-up at [facility] two weeks post-op. Call the office with any questions or concerns, Discharge Disposition: HOME WITH HOME HEALTH SERVICES
[2023-03-21 11:26] LABS: Glucose,Whole Blood 111 mg/dL (70-110)
[2023-03-21 16:54] LABS: Glucose,Whole Blood 134 mg/dL (70-110)
[2023-03-21 20:14] LABS: Glucose,Whole Blood 127 mg/dL (70-110)
[2023-03-21] MEDS: SENNOSIDES-DOCUSATE SODIUM 1 EACH TAB PO SCH (20:57)
[2023-03-21] MEDS: clonazePAM 1 MG TAB PO PRN (22:48)
[2023-03-22] MEDS: HYDROcodone/APAP 10-325MG 1 EACH TAB PO PRN (04:52)
[2023-03-22] MEDS: LEVOTHYROXINE 25 MCG TAB PO SCH (05:19)
[2023-03-22] MEDS: FAMOTIDINE 20 MG TAB PO PRN (05:19)
[2023-03-22 06:04] LABS: Glucose,Whole Blood 107 mg/dL (70-110)
[2023-03-22] MEDS: LACTATED RINGERS 1,000 ML IV SCH (06:25)
[2023-03-22 08:12] VITALS: RESP 16
[2023-03-22] MEDS: LOSARTAN 50 MG TAB PO SCH (08:23)
[2023-03-22] MEDS: ASPIRIN 81 MG PO SCH (08:23)
--- NOTE | 2023-03-22 09:39 | P.PN ---
Subjective Progress Note Date: 03/22/23 Patient is a 62-year-old female with hypothyroidism, hypertension, and GERD who presented to the hospital for elective right total hip arthroplasty due to severe osteoarthritis. She tolerated the procedure well. She did have a fall after the OR. X-ray evaluation was negative. She did work with physical and occupational therapy which were worried about her pain and weakness causing imbalance and recommended possible rehab if this does not improve. Patient seen and examined at bedside. Able to work with PT and OT effectively. She has no complaints. Pain well-controlled with current pain regimen. Urinating freely. Had a bowel movement. Vital signs reviewed General: nontoxic, no distress, appears at stated age Cardiovascular: S1S2 reg, no murmur Lungs: CTA bilateral, no rhonchi, no rales , no accessory muscle use Ext: no gross muscle atrophy, trace edema b/l lower extremities, no contractures Neuro: no focal neuro deficits Psych: Alert, oriented, appropriate affect Assessment/plan: Patient is a 62-year-old female status post right total hip arthroplasty Hypertension -Follow blood pressures -Continue with Cozaar 50 mg daily Hypothyroidism -Continue Synthroid Tonic: GERD Asthma Dyslipidemia Imaging: none Data Review: BP 144/84. Respiratory rate 16. Pulse 89. Temperature 97.7 Fahrenheit. 95% on room air. Thank you for allowing us to participate in the care of this pleasant patient. Do not hesitate to contact us with questions. Someone can be reached from the [facility] hospitalist group all hours of the day at [phone] or via [employer]. Objective - Vital Signs Vital signs: Vital Signs Temp 97.7 F 03/22/23 07:17 Pulse 89 03/22/23 07:17 Resp 16 03/22/23 07:17 BP 144/84 03/22/23 07:17 Pulse Ox 95 03/22/23 07:17 FiO2 Intake & Output 03/21/23 03/22/23 03/22/23 18:59 06:59 18:59 Intake Total 320 Balance 320 Intake: Intake, IV Titration 20 Amount Lactated Ringers 1,000 ml 20 @ 20 mls/hr IV .Q24H NIRAV Rx#:[id number] Oral 300 Other: # Voids 2 1 - Labs CBC & Chem 7: 03/21/23 06:51 03/19/23 08:47 Labs: Abnormal Lab Results - Last 24 Hours (Table) 03/21/23 03/21/23 03/21/23 Range/Units 11:24 16:53 20:13 POC Glucose (mg/dL) 111 H 134 H 127 H (70-110) mg/dL
--- NOTE | 2023-03-22 11:24 | P.PN ---
Subjective Progress Note Date: 03/22/23 Today is postoperative day #4. Patient is status post right total hip arthroplasty on 03/18/23. Patient is examined bedside this morning with Dr. Mcgee. Patient is doing very well and feels ready to discharge home with home health care today. Patient has been cleared by physical therapy to return home. Pain is well-controlled. No new complaints. Objective - Vital Signs Vital signs: Vital Signs Temp 97.7 F 03/22/23 07:17 Pulse 89 03/22/23 07:17 Resp 16 03/22/23 07:17 BP 144/84 03/22/23 07:17 Pulse Ox 95 03/22/23 07:17 FiO2 Intake & Output 03/21/23 03/22/23 03/22/23 18:59 06:59 18:59 Intake Total 320 Balance 320 Intake: Intake, IV Titration 20 Amount Lactated Ringers 1,000 ml 20 @ 20 mls/hr IV .Q24H NIRAV Rx#:[id number] Oral 300 Other: # Voids 2 1 - Exam On examination, the patient is sitting up in bed in no apparent distress. She is alert and oriented 3. On inspection of her right hip, there is a clean, dry, intact Prevena wound vac in place. Motor and sensory function intact RLE. Femoral nerve function intact. RLE warm and well perfused. Calf nontender. - Labs CBC & Chem 7: 03/21/23 06:51 03/19/23 08:47 Labs: Abnormal Lab Results - Last 24 Hours (Table) 03/21/23 03/21/23 03/21/23 Range/Units 11:24 16:53 20:13 POC Glucose (mg/dL) 111 H 134 H 127 H (70-110) mg/dL Assessment and Plan Assessment: Status-post direct anterior right total hip arthroplasty 03/18/23. Post-op day #4. Plan: - Discharge home today with home physical therapy. Patient should keep Prevena wound vac in place and follow-up at [facility] on 03/24/23 for wound vac removal and incision check.
[2023-03-22 12:52] VITALS: PULSE 104
[2023-03-22 12:58] VITALS: BP 151/91; TEMP 98.1
== END 2023-03-22 12:12 | disposition home health service (06) ==
LOC: OR 08:12 → EDSTATUS 10:25 → 4SSUR 12:37 → OR 03-21 09:21
PROVIDERS: ADMIT Orthopaedic Surgery; ATTEND Orthopaedic Surgery
DX: M16.11 Unilateral primary osteoarthritis, right hip (principal); G89.18 Other acute postprocedural pain; E03.9 Hypothyroidism, unspecified; I10 Essential (primary) hypertension; E78.5 Hyperlipidemia, unspecified; J45.909 Unspecified asthma, uncomplicated; K21.9 Gastro-esophageal reflux disease without esophagitis; F32.A Depression, unspecified; F41.9 Anxiety disorder, unspecified; Z79.891 Long term (current) use of opiate analgesic; Z98.1 Arthrodesis status; Z90.49 Acquired absence of other specified parts of digestive tract; Z87.891 Personal history of nicotine dependence; Z80.8 Family history of malignant neoplasm of other organs or systems; Z83.3 Family history of diabetes mellitus; Z82.49 Family history of ischemic heart disease and other diseases of the circulatory system; Z79.82 Long term (current) use of aspirin; Z79.899 Other long term (current) drug therapy; Z88.1 Allergy status to other antibiotic agents; Z88.2 Allergy status to sulfonamides; Z88.8 Allergy status to other drugs, medicaments and biological substances; Z79.890 Hormone replacement therapy
CPT/HCPCS: 97116 ×2; 97530 ×2; 97163; 64447; 86900; 86901; 80053; 80048; 85025; 85027 ×2; 85610; 85730; 86850; 81001; 87070; 73501; 73600; 27130; G0378 ×2; C1776; J2250; J0330; J1100; J2710; J0690 ×2; J2405; J3010; J1170 ×3; J2795; J1885; J2370; J2704; J2001